=== PATIENT | male | born 2000 | race Caucasian/White ===

== ENCOUNTER 2024-03-05 15:07 | Emergency (ER) | payer BC, SELFPAY ==
[2024-03-05 15:20] VITALS: BP 125/76; PULSE 77; RESP 18; TEMP 36.6; O2SAT 99; BMI 29.0
--- NOTE | 2024-03-05 15:25 | US_ITS ---
PROCEDURE INFORMATION: Exam: US Scrotum Exam date and time: 03/05/2024 4:02 PM Age: 24 years old Clinical indication: Scrotum pain TECHNIQUE: Imaging protocol: Real-time ultrasound of the scrotum and contents with color Doppler and image documentation. COMPARISON: No relevant prior studies available. FINDINGS: Right testicle: Right testicle measures 5.2 x 2.6 x 3.7 cm. The right testicle demonstrates normal arterial inflow and venous outflow. Left testicle: Left testicle measures 5.3 x 3.0 x 3.5 cm. The left testicle demonstrates normal arterial inflow venous outflow. Epididymides: There is a left epididymal cyst identified. Which measures 0.3 cm. Scrotum/soft tissues: There is a large left hydrocele. There is a 0.6 cm left scrotal pleural. IMPRESSION: There is a large left hydrocele.
[2024-03-05 15:33] LABS: Apearance,Urine Clear (Clear); Color,Urine Dark Yellow (Yellow); Protein,Urine Negative (Negative)
[2024-03-05 15:34] LABS: Bilirubin,Urine Negative (Negative); Blood, Urine 3+ (Negative); Glucose,Urine (UA) Negative (Negative); Ketones,Urine Negative (Negative); UTC Leukocyte Esterase,Urine Negative (Negative); UTC Nitrate,Urine Negative (Negative); Urobilinogen,Urine 0.2 EU/dl (0.2)
--- NOTE | 2024-03-05 16:08 | ED_ITS ---
Discharge Plan Referrals Follow up/Referrals: Chana Trevino [Primary Care Provider] - See instructions [place] ED Provider[place] Shaniqua [place] [facility] [place] General Stated complaint: pain in lower right back, genital pain Mode of Arrival: Ambulatory Source of Information: Patient Limitations: No Limitations Time Seen by Provider: 03/05/24 15:50 Description of Symptoms (Recalled from Triage Doc. by RN): Pt has been having right lower flank pain, and right testicular pain. He states that there has been a always dull pain, but on and off he gets sharp pains. He states that today the flank pain on and off radiates to RLQ of the abdomen. He denies any trauma or over use. He states there is no chance of STD. HEENT Symptoms (Recalled from RN notes): No Resp Symptoms (Recalled from RN notes): No Skin Symptoms (Recalled from RN notes): No MS Symptoms (Recalled from RN notes): Yes Functional Status (Recalled from RN notes): n/a History of Present Illness Provider Complaint: 24 yr old male presents for c/o right lower flank pain, and right testicular pain. He states that there has been a always dull pain, but on and off he gets sharp pains. He states that today the flank pain on and off radiates to RLQ of the abdomen. He denies any trauma or over use. He states hx of kidney stones Related Data Allergies Allergy/AdvReac Type Severity Reaction Status Date / Time No Known Allergies Allergy Verified 03/05/24 16:07 Worker's Comp Is this a Worker's Comp case?: No [facility] Disclaimer: The information contained in this section may have been updated after the patient was seen, as this information can be updated by other users. Social History , [employer] PROCESSING ENGINEER) Smoking Status: Unknown if ever smoked alcohol intake: never current occupational status: employed Travel in the last 8 weeks: None ROS Obtained: Yes All systems reviewed & no additional complaints except as documented Constitutional Constitutional: Reports system reviewed and no additional complaints, except as documented Eyes Eyes: Reports system reviewed and no additional complaints, except as documented ENT Ears, Nose, Mouth, and Throat: Reports system reviewed and no additional complaints, except as documented Cardiovascular Cardiovascular: Reports system reviewed and no additional complaints, except as documented Respiratory Respiratory: Reports system reviewed and no additional complaints, except as documented Gastrointestinal Gastrointestingal: Reports system reviewed and no additional complaints, except as documented Genitourinary Male Genitourinary: Reports system reviewed and no additional complaints, except as documented, Reports as per HPI, Reports flank pain, Reports genital pain and Reports hematuria Musculoskeletal Musculoskeletal: Reports system reviewed and no additional complaints, except as documented Integumentary/Breasts Skin/Breast: Reports system reviewed and no additional complaints, except as documented Neurologic Neurologic: Reports system reviewed and no additional complaints, except as documented Endocrine Endocrine: Reports system reviewed and no additional complaints, except as documented Hematologic/Lymphatic Henatologic/Lymphatic: Reports system reviewed and no additional complaints, except as documented Allergic/Immunologic Allergic/Immunologic: Reports system reviewed and no additional complaints, except as documented Physical Exam General General appearance: alert and in no apparent distress Head Head exam: atraumatic Eye Eye exam: Present normal appearance and PERRL ENT ENT exam: Present normal exam, normal oropharynx and mucous membranes moist Respiratory Respiratory exam: Present normal lung sounds bilaterally Cardiovascular Cardiovascular exam: Present regular rate and normal rhythm Back Exam Back 1 view image: 2 1. tender Neurological Exam Neurological exam: Present alert and oriented X3 Skin Skin exam: Present warm and intact Medical Decision Making Medical Records Medical records reviewed: Yes I reviewed the patient's medical records. Nimesh Inquiry Pt receiving controlled substance: No Nimesh was queried for this patient: No Vital Signs: 03/05/24 15:20 Temperature 97.9 F Temperature Source Oral Pulse Rate [Right Radial] 77 Respiratory Rate 18 Blood Pressure [Right Radial Artery] 125/76 Blood Pressure Mean [Right Radial Artery] 92 Blood Pressure Source [Right Radial Artery] Automatic Cuff Blood Pressure Position [Right Radial Artery] Sitting 02 Sat by Pulse Oximetry 99 Oxygen Delivery Method Room Air Lab Data Lab results reviewed: Yes I reviewed the patient's lab results. Lab Results 03/05/24 15:33: Urine Color Dark yellow, Urine Appearance Clear, Urine pH 6.0, Ur Specific [place] 1.030, Urine Protein Negative, Urine Glucose (UA) Negative, Urine Ketones Negative, Urine Blood 3+, Urine Nitrate Negative, Urine Bilirubin Negative, Urine Urobilinogen 0.2, Ur Leukocyte Esterase Negative Orders (Tests/Meds): ORDERS Category Date Time Status US Testicular Stat Ultrasound 03/05/24 15:25 Ordered Physician Consults Physician Consulted: ross Time: 16:31 Reason -: Pt condition Comment/Response: report to shaniqua
[2024-03-05 16:32] VITALS: BP 138/91; PULSE 69; RESP 17; TEMP 36.6; O2SAT 98; BMI 29.0
[2024-03-05 16:46] LABS: Microscopic, Urine URINE MICROSCOPIC (MICROSCOPIC)
[2024-03-05 16:55] LABS: Appearance,Urine CLEAR (Clear); Bilirubin,Urine Negative (Negative); Blood, Urine 3+ (Negative); Color,Urine YELLOW (Yellow); Glucose,Urine (UA) Negative (Negative); Ketones,Urine Negative (Negative); Leukocyte Esterase,Urine Negative (Negative); Nitrate,Urine Negative (Negative); Protein,Urine TRACE (Negative); Specific Gravity, Urine >= 1.030 (1.005-1.030); Urobilinogen,Urine 0.2 EU/dl (0.2)
--- NOTE | 2024-03-05 17:04 | CT_ITS ---
PROCEDURE INFORMATION: Exam: CT Abdomen And Pelvis Without Contrast Exam date and time: 03/05/2024 5:19 PM Age: 24 years old Clinical indication: Pain; Other: Possible kidney stone; Additional info: Concern for R sided stone TECHNIQUE: Imaging protocol: Computed tomography of the abdomen and pelvis without contrast. Radiation optimization: All CT scans at this facility use at least one of these dose optimization techniques: automated exposure control; mA and/or kV adjustment per patient size (includes targeted exams where dose is matched to clinical indication); or iterative reconstruction. COMPARISON: US TESTICULAR 03/05/2024 4:02 PM FINDINGS: Lungs: Scattered areas of bronchial wall thickening which are likely chronic inflammatory. A few areas of subpleural reticulation are noted, nonspecific. There are scattered calcified granulomas in the lungs which most likely reflect prior granulomatous disease. Liver: Normal. Gallbladder and bile ducts: No acute process. Pancreas: Normal. Spleen: Normal. Adrenal glands: The adrenal glands appear normal. Kidneys and ureters: Moderate right hydroureteronephrosis extending to a 6 mm distal ureteral calculus (image 91 series 3). There are nonobstructing bilateral intrarenal calculi. Stomach and bowel: There is large volume stool throughout the colon. Appendix: No evidence of appendicitis. Intraperitoneal space: Unremarkable. Vasculature: There is atherosclerotic disease of the visualized aorta and its major branch vessels. Lymph nodes: No lymphadenopathy. Urinary bladder: There is moderate distention of the urinary bladder. Reproductive: No acute process. Bones/joints: There is diffuse degenerative disease of the visualized osseous structures. Soft tissues: There is bilateral gynecomastia. IMPRESSION: Moderate right hydroureteronephrosis extending to a 6 mm distal ureteral calculus (image 91 series 3).
--- NOTE | 2024-03-05 17:05 | PC.NURSE ---
DR LOMAX AT BEDSIDE
--- NOTE | 2024-03-05 17:15 | ED_ITS ---
Discharge Plan Disposition Patient Disposition: Home, Self-Care Chief Complaint: Urogenital-Male Referrals Follow up/Referrals: Chana Trevino [Primary Care Provider] - See instructions Activity Restrictions/Add. Instructions Additional Instructions/Restrictions: Call your family doctor to establish care for this visit to the emergency department and schedule follow-up within 48 hours to ensure improvement. If you have any worsening of your condition or any other concerning signs or symptoms, return to the emergency department or your primary care doctor for further evaluation. Concerning symptoms include fevers, chills, inability to urinate, noticeable blood in urine, severe or worsening pain. Take Tylenol 1000 mg every 6 hours (4 times daily) and ibuprofen 400 mg every 6 hours (4 times daily) as needed with food and water to prevent GI upset and kidney damage. Clinical Impressions Clinical Impression: Calcium ureterolithiasis, Hydronephrosis Instructions Patient Instructions: DI for Urinary Tract Infection (UTI), DI for Urinary Tract Infection in Children Discharge ED Provider: Lonny Duque General Adult HPI General Chief complaint: Urogenital-Male Stated complaint: pain in lower right back, genital pain Time Seen by Provider: 03/05/24 15:50 Mode of Arrival: Ambulatory Limitations: No Limitations Description of Symptoms (Recalled from ER Triage Doc. by RN): Patient brought from [facility] with complaints of right flank, right groin and testicle pain. Patient states the groin and testicle pain began 1 week ago but pain in right flank and right lower quadrant began yesterday. States pain is between dull and sharp comes and goes. Denies trouble urinating but has history of kidney stones. History of Present Illness HPI narrative: Please note that above description of symptoms, in this electronic medical record under categorization of recalled from ER triage doctor by RN are reflective of an initial nursing assessment, however, is not reflective of my full history and physical exam that was personally taken and clarified. Consequentially, this preceding description of symptoms, which may include the patient's categorized chief complaint in the EMR, do not reflect my personal clinical impression, and the ultimate description of history of present illness and patient stated complaints should be deferred to this section of the note. Unless stated otherwise or congruent with this section of the note, additional signs, symptoms, or incongruence should be interpreted as inaccurate with my clinical impression. Related Data Allergies Allergy/AdvReac Type Severity Reaction Status Date / Time No Known Allergies Allergy Verified 03/05/24 16:07 [facility] Disclaimer: The information contained in this section may have been updated after the patient was seen, as this information can be updated by other users. Social History (Updated 03/05/24 @ 16:31 by Mariaelena Salazar ([facility]), CHILD CARE ATTENDANT) Smoking Status: Never smoker alcohol intake: never current occupational status: employed Travel in the last 8 weeks: None ROS Obtained: Yes All systems reviewed & no additional complaints except as documented Physical Exam General General appearance: alert and in no apparent distress Head Head exam: atraumatic and normocephalic Eye Eye exam: Present normal appearance, PERRL and EOMI ENT ENT exam: Present mucous membranes moist Neck Neck exam: Present normal inspection, full ROM and trachea midline Respiratory Respiratory exam: Absent respiratory distress, wheezes, stridor, accessory muscle use or prolonged expiratory phase Cardiovascular Cardiovascular exam: Present normal rhythm and tachycardia Abdominal Exam Abdominal exam: Present soft; Absent distention, tenderness, guarding, rebound or rigidity Extremities Exam Extremities exam: Absent edema Neurological Exam Neurological exam: Present alert, oriented X3, CN II-XII intact and normal gait; Absent motor sensory deficit Skin Skin exam: Present warm and dry; Absent diaphoresis or erythema Medical Decision Making Medical Records Medical records reviewed: Yes I reviewed the patient's medical records. Nimesh Inquiry Pt receiving controlled substance: No Nimesh was queried for this patient: No Vital Signs: 03/05/24 15:20 03/05/24 16:32 Temperature 97.9 F 97.9 F Temperature Source Oral Oral Pulse Rate [Right Radial] 77 69 Respiratory Rate 18 17 Blood Pressure [Right Radial Artery] 125/76 138/91 H Blood Pressure Mean [Right Radial Artery] 92 106 Blood Pressure Source [Right Radial Artery] Automatic Cuff Automatic Cuff Blood Pressure Position [Right Radial Artery] Sitting 02 Sat by Pulse Oximetry 99 98 Oxygen Delivery Method Room Air Room Air Lab Data Lab Results 03/05/24 15:02: Urine Color Yellow, Urine Appearance Clear, Urine pH 6.0, Ur Specific [place] >= 1.030, Urine Protein Trace, Urine Glucose (UA) Negative, Urine Ketones Negative, Urine Blood 3+, Urine Nitrate Negative, Urine Bilirubin Negative, Urine Urobilinogen 0.2, Ur Leukocyte Esterase Negative, Urine RBC 10- 20, Urine WBC 3-5, Ur Squamous Epith Cells None, Urine Bacteria Trace, Urine Yeast Occasional 03/05/24 15:33: Urine Color Dark yellow, Urine Appearance Clear, Urine pH 6.0, Ur Specific [place] 1.030, Urine Protein Negative, Urine Glucose (UA) Negative, Urine Ketones Negative, Urine Blood 3+, Urine Nitrate Negative, Urine Bilirubin Negative, Urine Urobilinogen 0.2, Ur Leukocyte Esterase Negative Orders (Tests/Meds): ORDERS Category Date Time Status CT abdomen pelvis wo con Stat Cat Scan 03/05/24 17:04 Completed POCUS Point of Care (ER Only) Stat Exams 03/05/24 16:39 Completed UA [Urinalysis and Microscopic] Stat Lab 03/05/24 15:02 Completed Urine Culture Stat Micro 03/05/24 15:02 Received US Testicular Stat Ultrasound 03/05/24 15:25 Completed Medical Decision Narrative: 24-year-old male history of kidney stones presenting with testicular pain. Patient states that testicular pain started 3 to 4 days ago. No associated fevers, chills, hematuria, nausea, vomiting. Initially started in his flank, now is right lower quadrant/going into his right testicle. Went to urgent care just before this, blood in his urine, testicular ultrasound with left-sided hydrocele, no evidence of torsion. Was sent over for further eval for nephrolithiasis. History was obtained via conversation with patient. On arrival, patient hemodynamically stable, alert, oriented x4, appropriate, GCS 15, moving all extremities spontaneously, pupils equal and reactive to light. Full physical exam performed and significant for well-appearing male no acute distress. No flank tenderness, no overlying skin changes, but palpation deeply in right lower quadrant with mild tenderness. No evidence of peritonitis. Right upper quadrant negative. Differential includes nephrolithiasis, UTI, appendicitis, cholecystitis, among others. Workup independently interpreted and significant for hematuria on UA. Bedside [id number] ultrasound performed and with mild hydronephrosis, this independently dictated management and CT was needed for confirmatory imaging. CT scan with distal ureteral stone with mild ureter nephrosis. See radiology read for full review of final results. On reevaluation, patient still resting comfortably. Because patient at baseline without signs or symptoms of clinical decompensation, deemed appropriate for discharge. Results were relayed to patient who voiced understanding and were agreeable to outpatient management and follow up. I discussed my clinical impression with patient and answered all questions. At this time, the evidence for any other entities in the d ifferential is insufficient to warrant any further testing or ED observation. This was explained as well. Advisory was given that persistent or worsening symptoms require further evaluation. I confirmed the understanding of this discussion. Procedures Limited Ultrasound Indication:: Limited renal ultrasound Indication: A focused ultrasound of the kidneys was performed to evaluate for hydronephrosis and nephrolithiasis. The ultrasound was performed with the following indications, as noted in the H&P : Abdominal and flank pain, hematuria Identified structures: Right kidney -Bladder Findings: Mild hydronephrosis, normal bladder Impression: Mild right-sided hydronephrosis with normal bladder Images were saved to permanent archive The study was technically adequate CPT: 65299-13 This study was performed by me, and I personally interpreted all images/videos. Based on my clinical judgement, these images were adequate and did necessitate further imaging. Critical Care Critical Care Time Critical Care Time: No
--- NOTE | 2024-03-05 17:18 | PC.NURSE ---
PT to RAD
--- NOTE | 2024-03-05 17:21 | PC.NURSE ---
pt back from rad
[2024-03-05 17:24] LABS: Bacteria,Urine Trace /lpf; Yeast,Urine Occasional /lpf
[2024-03-05 17:57] VITALS: BP 122/77; PULSE 71; RESP 20; TEMP 37.1; O2SAT 99
== END 2024-03-05 18:00 | disposition home or self-care (01) ==
LOC: UTC 15:17 → ER 16:29
PROVIDERS: Nurse Practitioner Family; Emergency Provider Emergency Medicine; PCP Nurse Practitioner Family
DX: N13.0 Hydronephrosis with ureteropelvic junction obstruction (principal); R10.31 Right lower quadrant pain; B96.89 Other specified bacterial agents as the cause of diseases classified elsewhere; M54.59 Other low back pain
CPT/HCPCS: 74176; 76870; 81001; 81003; 87086; 99285